=== PATIENT | male | born 1950 | race Caucasian/White ===

== ENCOUNTER 2016-12-14 13:15 | Emergency (ER) | payer BC, OTHER ==
[~2016-12-14] VITALS: Ht 167.6 cm; Wt 92.3 kg
[~2016-12-14 13:15] MED LIST: BUPR100T4 PO; CYCL1TAB29 PO; ENAL10TA PO; GABA600T PO; HYDR-3516 PO; LEVO50TA4 PO; SEIZURE MED; SOMA250T PO; TRAZ50TA12 PO; [UNRECOGNIZED DRUG - OTHER] PO
[2016-12-14 13:19] VITALS: BP 173/80; PULSE 74; RESP 20; TEMP 97.2; O2SAT 96
[2016-12-14 14:05] LABS: AUTOMATED NEUTROPHIL # 3.6 TH/MM3 (1.8-7.7); BASOPHIL % 0.7 % (0.0-2.0); EOSINOPHIL # 0.3 TH/MM3 (0-0.4); EOSINOPHIL % 5.9 % (0.0-4.0); HEMATOCRIT 39.1 % (39.0-51.0); HEMO FLAGS DIFF FINAL; LYMPH % 22.7 % (9.0-44.0); LYMPHOCYTE # 1.3 TH/MM3 (1.0-4.8); MEAN CELL VOLUME 84.1 FL (80.0-100.0); MEAN CORPUSCULAR HEMOGLOBIN 28.5 PG (27.0-34.0); MEAN CORPUSCULAR HGB CONC 33.9 % (32.0-36.0); MONO % 8.2 % (0.0-8.0); NEUT % 62.5 % (16.0-70.0); PLATELET COUNT 196 TH/MM3 (150-450); RED BLOOD COUNT 4.65 MIL/MM3 (4.50-5.90); WHITE BLOOD COUNT 5.7 TH/MM3 (4.0-11.0)
[2016-12-14 14:21] LABS: BLOOD, URINE NEG (NEG); GLUCOSE,URINE 300 mg/dL (NEG); HYALINE CAST, URINE 1 /lpf (RARE); KETONE, URINE NEG (NEG); NITRITE,URINE NEG (NEG); PH, URINE 5.5 (5.0-8.5); SQUAMOUS EPITHELIAL CELL URINE <1 /hpf (0-5); URINE COLOR LIGHT-YELLOW (YELLW/STRAW)
[2016-12-14 14:25] LABS: ALKALINE PHOSPHATASE 95 U/L (45-117); ALT (GPT) 19 U/L (12-78); ANION GAP 9 MEQ/L (5-15); AST (GOT) 14 U/L (15-37); BICARBONATE 27.3 MEQ/L (21.0-32.0); BLOOD UREA NITROGEN 25 MG/DL (7-18); CHLORIDE 99 MEQ/L (98-107); GLOMERULAR FILTRATION RATE 46 ML/MIN (>89); POTASSIUM 4.9 MEQ/L (3.5-5.1); SODIUM (NA) 135 MEQ/L (136-145); TOTAL BILIRUBIN ADULT 0.4 MG/DL (0.2-1.0)
[2016-12-14 14:26] LABS: COMMENT (UR) CULT NOT INDICATED; CULTURE IF INDICATED CULT NOT INDICATED
[2016-12-14 15:00] VITALS: BP 135/71; PULSE 98; RESP 17; TEMP 97.8; O2SAT 97
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
--- NOTE | 2016-12-14 15:26 | RADRPT ---
EXAM DATE/TIME: 12/14/2016 14:59 [facility] COMPARISON: No previous studies available for comparison. INDICATIONS : Altered mental status, fall. RADIATION DOSE: 46.82 CTDIvol (mGy) MEDICAL HISTORY : Hypertension. Cardiovascular disease SURGICAL HISTORY : None. ENCOUNTER: Initial ACUITY: 1 day PAIN SCALE: 4/10 LOCATION: Bilateral cranial TECHNIQUE: Multiple contiguous axial images were obtained of the head. Using automated exposure control and adj ustment of the mA and/or kV according to patient size, radiation dose was kept as low as reasonably a chievable to obtain optimal diagnostic quality images. FINDINGS: CEREBRUM: Atrophy. Encephalomalacia involving the right frontal lobe and right temporal lobe and The ventricles are normal for age. No evidence of midline shift, mass lesion, hemorrhage or acute infarction. No extra-axial fluid collections are seen. POSTERIOR FOSSA: The cerebellum and brainstem are intact. The 4th ventricle is midline. The cerebellopontine angle i s unremarkable. EXTRACRANIAL: The visualized portion of the orbits is intact. SKULL: The calvaria is intact. No evidence of skull fracture. CONCLUSION: 1. No acute intracranial abnormality. 2. Encephalomalacia of the right frontal lobe and temporal lobe suggesting prior trauma. 3. Atrophy. Brayan Velazquez Jr., MD on December 14, 2016 at 15:23 Board Certified Radiologist. This report was verified electronically.
[2016-12-14 16:08] VITALS: BP 130/71; TEMP 97.8
[2017-02-15] MEDS ORDERED: DEPA500T PO (09:54)
[2017-02-15] MEDS ORDERED: GABA600T PO (09:54)
[2017-02-15] MEDS ORDERED: AMAN100C18 PO (09:54)
[2017-02-15] MEDS ORDERED: LANTUS2P SQ (18:56)
[2017-02-15] MEDS ORDERED: JANU50TA8 PO (18:56)
[2017-02-24] MEDS ORDERED: GABA100C4 PO (12:47)
[2017-03-01] MEDS ORDERED: DEPA500T PO (13:03)
[2017-03-15] MEDS ORDERED: AMAN100C18 PO (13:48)
[2017-03-15] MEDS ORDERED: BUPR75TA PO (13:50)
== END 2016-12-14 16:08 | disposition home or self-care (01) ==
LOC: NEPA 13:15
DX: R41.0 Disorientation, unspecified (principal); E11.9 Type 2 diabetes mellitus without complications; I10 Essential (primary) hypertension; W19.XXXD Unspecified fall, subsequent encounter; Y99.0 Civilian activity done for income or pay
CPT/HCPCS: 70450; 80053; 81001; 85025

== ENCOUNTER 2017-06-04 11:18 | Emergency (ER) | payer BC, OTHER ==
[~2017-06-04] VITALS: Ht 172.7 cm; Wt 95.9 kg
[~2017-06-04 11:18] MED LIST changes: -BUPR100T4 PO; +BUPR75TA PO; -CYCL1TAB29 PO; +DEPA500T PO; +GABA100C4 PO; -GABA600T PO; -HYDR-3516 PO; +JANU50TA8 PO; +LANTUS2P SQ; -SEIZURE MED; -SOMA250T PO; -[UNRECOGNIZED DRUG - OTHER] PO
[2017-06-04 11:21] VITALS: BP 109/61; PULSE 69; RESP 17; TEMP 97.9; O2SAT 97
[2017-06-04] MEDS ORDERED: CETI10CH CHEW (11:59)
[2017-06-04] MEDS ORDERED: VICT18IN SQ (11:59)
--- NOTE | 2017-06-04 12:58 | RADRPT ---
EXAM DATE/TIME: 06/04/2017 12:23 [facility] COMPARISON: No previous studies available for comparison. INDICATIONS : Pain from fall. MEDICAL HISTORY : None. SURGICAL HISTORY : None. ENCOUNTER: Initial ACUITY: 1 day PAIN SCORE: 5/10 LOCATION: Left elbow. FINDINGS: No definite fractures, or dislocations are identified. No definite lytic or sclerotic lesion is seen . The joint spaces are well maintained. CONCLUSION: Unremarkable study. Bella Oro MD on June 04, 2017 at 12:51 Board Certified Radiologist. This report was verified electronically.
--- NOTE | 2017-06-04 12:59 | RADRPT ---
EXAM DATE/TIME: 06/04/2017 12:36 [facility] COMPARISON: No previous studies available for comparison. INDICATIONS : Pain from fall. MEDICAL HISTORY : None. SURGICAL HISTORY : None. ENCOUNTER: Initial ACUITY: 4 - 6 days PAIN SCORE: 5/10 LOCATION: Left knee. FINDINGS: No definite fractures, or dislocations are identified. No definite lytic or sclerotic lesion is seen . The joint spaces are well maintained. CONCLUSION: Unremarkable study. Bella Oro MD on June 04, 2017 at 12:57 Board Certified Radiologist. This report was verified electronically.
--- NOTE | 2017-06-04 12:59 | RADRPT ---
EXAM DATE/TIME: 06/04/2017 12:38 [facility] COMPARISON: CT BRAIN W/O CONTRAST, December 14, 2016, 14:59. INDICATIONS : Fall Saturday night. Confusion, balance loss. RADIATION DOSE: 36.06 CTDIvol (mGy) MEDICAL HISTORY : Cardiovascular disease. Hypertension. Diabetes mellitus type 2. SURGICAL HISTORY : None. ENCOUNTER: Initial ACUITY: 1 day PAIN SCALE: 0/10 LOCATION: cranial TECHNIQUE: Multiple contiguous axial images were obtained of the head. Using automated exposure control and adj ustment of the mA and/or kV according to patient size, radiation dose was kept as low as reasonably a chievable to obtain optimal diagnostic quality images. DICOM format image data is available electro nically for review and comparison. FINDINGS: CEREBRUM: Stable encephalomalacia of the right frontal lobe convexities in right anterior temporal region. Mild diffuse cerebral volume loss. The ventricles are normal for degree of atrophy. No evidence of midli ne shift, mass lesion, hemorrhage or acute infarction. No extra-axial fluid collections are seen. POSTERIOR FOSSA: The cerebellum and brainstem are intact. The 4th ventricle is midline. The cerebellopontine angle i s unremarkable. EXTRACRANIAL: The visualized portion of the orbits is intact. SKULL: The calvaria is intact. No evidence of skull fracture. CONCLUSION: 1. No acute intracranial abnormality. 2. Stable encephalomalacia in the right frontal and temporal lobes. Lamonte Shoemaker MD on June 04, 2017 at 12:53 Board Certified Radiologist. This report was verified electronically.
--- NOTE | 2017-06-04 13:04 | RADRPT ---
EXAM DATE/TIME: 06/04/2017 12:38 [facility] COMPARISON: No previous studies available for comparison. INDICATIONS : Trauma, fall. Neck pain. RADIATION DOSE: 21.60 CTDIvol (mGy) MEDICAL HISTORY : Cardiovascular disease. Hypertension. Diabetes mellitus type 2. SURGICAL HISTORY : None. ENCOUNTER: Initial ACUITY: 1 day PAIN SCALE: 0/10 LOCATION: neck TECHNIQUE: Volumetric scanning of the cervical spine was performed. Multiplanar reconstructions in the sagittal, coronal and oblique axial planes were performed. Using automated exposure control and adjustment o f the mA and/or kV according to patient size, radiation dose was kept as low as reasonably achievable to obtain optimal diagnostic quality images. DICOM format image data is available electronically f or review and comparison. FINDINGS: Vertebral body heights are maintained. Dens is intact. No acute bony fractures. There is loss of norm al cervical lordosis with subtle retrolisthesis of C5 on C6. Facets are normally aligned. There is mu ltilevel degenerative spondylosis of the cervical spine most prominently at C3-4 and C5-6 with disc s pace narrowing and osteophyte formation. Bony central canal is grossly patent. Moderate right neural foraminal stenosis secondary to osteophyte formation and facet arthropathy at C5-6. The no evidence for prevertebral soft tissue swelling. Bilateral calcified carotid plaques are noted. Appears unremarkable by CT. Visualized lung apices are clear. CONCLUSION: 1. Multilevel degenerative spondylosis of the cervical spine most prominently at C5-6 with subtle ret rolisthesis of C5 on C6, likely degenerative. Flexion and extension views may be performed if there i s clinical concern regarding ligamentous instability. 2. Otherwise, no acute fracture or subluxation. Lamonte Shoemaker MD on June 04, 2017 at 12:58 Board Certified Radiologist. This report was verified electronically.
--- NOTE | 2017-06-04 13:18 | PD ---
HPI Chief Complaint: Altered Mental Status Time Seen by Provider: 11:45 Travel History International Travel<30 days: No Contact w/Intl Traveler<30days: No Traveled to known affect area: No History of Present Illness HPI Patient is a 66 year old male who comes in because his and physical therapist are concerned he seems more confused. He says that Wednesday he tripped and fell and hit his left arm and leg. He says he does not think he hit his head but he is not completely sure. He denies any loss of consciousness. His history of traumatic brain injury, and his has noticed that he seems to be more forgetful and confused since the incident. He was told to come here to be checked out. He has some pain to his left knee and elbow, he denies any headache. He denies any nausea or vomiting. PFSH Past Medical History Anxiety: Yes Cardiac Catheterization: Yes Cardiovascular Problems: Yes (STENT 2012) High Cholesterol: Yes Coronary Artery Disease: Yes Diabetes: Yes Patient Takes Glucophage: No Diminished Hearing: No Hypertension: Yes Neurologic: Yes (traumatic brain injury ) Tetanus Vaccination: < 5 Years Influenza Vaccination: Yes Past Surgical History Coronary Stent: Yes Other Surgery: Yes (PLASTIC SURGERY AT AGE 10) Social History Alcohol Use: No Tobacco Use: Yes (occ cigar) Substance Use: No Allergies-Medications (Allergen,Severity, Reaction): Coded Allergies: No Known Allergies (Verified , 06/04/17) Reported Meds & Prescriptions Reported Meds & Active Scripts Active Depakote DR (Divalproex Sodium) 500 Mg Tabdr 500 Mg PO TID Gabapentin 100 Mg Cap 200 Mg PO TID Reported Cetirizine (Cetirizine HCl) 10 Mg Chew 10 Mg CHEW DAILY Victoza Inj (Liraglutide Inj) 18 Mg/3 Ml Pen 0.6 Mg SQ DAILY Trazodone (Trazodone HCl) 50 Mg Tab 75 Mg PO HS Janumet (Sitagliptin-Metformin) 50-1,000 Mg Tab 1 Tab PO BID Lantus Inj (Insulin Glargine) 1,000 Unit/10 Ml Vial 60 Units SQ DAILY Levothyroxine (Levothyroxine Sodium) 50 Mcg Tab 50 Mcg PO DAILY Enalapril (Enalapril Maleate) 10 Mg Tab 10 Mg PO DAILY Review of Systems Except as stated in HPI: all other systems reviewed are Neg General / Constitutional: No: Fever, Chills Eyes: No: Blurred Vision HENT: No: Headaches Cardiovascular: No: Chest Pain or Discomfort Respiratory: No: Shortness of Breath Gastrointestinal: No: Nausea, Vomiting Musculoskeletal: Positive: Pain Skin: Positive Other (abrasions) Neurologic: No: Weakness, Dizziness Physical Exam Narrative GENERAL: Awake and alert, in no acute distress. SKIN: Focused skin assessment warm/dry. Abrasion to the left elbow and left knee. HEAD: Atraumatic. Normocephalic. EYES: Pupils equal and round. No scleral icterus. ENT: Mucous membranes pink and moist. NECK: Trachea midline. No JVD. No cervical spine tenderness. CARDIOVASCULAR: Regular rate and rhythm. No murmur appreciated. RESPIRATORY: No accessory muscle use. Clear to auscultation. Breath sounds equal bilaterally. MUSCULOSKELETAL: No obvious deformities. No clubbing. No cyanosis. No edema. Tender to palpation of the left patella and left elbow. Full range of motion of the left knee and left elbow. NEUROLOGICAL: Awake and alert. No obvious cranial nerve deficits. Motor grossly within normal limits. Normal speech. PSYCHIATRIC: Appropriate mood and affect; insight and judgment normal. Data Data Last Documented VS Vital Signs Date Time Temp Pulse Resp B/P Pulse Ox O2 Delivery O2 Flow Rate FiO2 06/04/17 11:21 97.9 69 17 109/[address] Brain W/O Iv Contrast(Rout) (06/04/17 ) Ct Cerv Spine W/O Contrast (06/04/17 ) Elbow, Complete (4 Vws) (06/04/17 ) Knee, Complete (4vws) (06/04/17 ) [facility] Medical Decision Making Medical Screen Exam Complete: Yes Emergency Medical Condition: Yes Medical Record Reviewed: Yes Differential Diagnosis Concussion versus ICH versus head injury versus knee fracture versus elbow fracture versus muscles strain Narrative Course Patient is a 66-year-old male who comes in after a fall 2 days ago. Exam shows no neurologic abnormalities. CT head and C-spine performed show no acute abnormalities. X-ray of the knee and elbow show no acute abnormalities. Patient is anxious to leave. He is discharged with his . is comfortable taking him home at this time. He is advised follow-up with his doctors. Advised to return to the emergency department for any worsening symptoms. Diagnosis Primary Impression: Fall Qualified Code: W19.XXXA - Fall, initial encounter Patient Instructions: Fall Prevention (ED), General Instructions Additional Instructions: Follow-up with her doctors. Return to the emergency department as needed for any worsening symptoms. Disposition: 01 DISCHARGE HOME Condition: Stable Vanessa Lam MD Jun 04, 2017 13:18
== END 2017-06-04 13:46 | disposition home or self-care (01) ==
LOC: NEPD 11:18
DX: R41.82 Altered mental status, unspecified (principal); M25.562 Pain in left knee; M25.522 Pain in left elbow; W01.0XXA Fall on same level from slipping, tripping and stumbling without subsequent striking against object, initial encounter; Z87.820 Personal history of traumatic brain injury
CPT/HCPCS: 70450; 72125; 73080; 73564; 99285

== ENCOUNTER 2017-07-12 12:12 | Emergency (ER) | payer OTHER, BC ==
[~2017-07-12] VITALS: Ht 172.7 cm; Wt 92.0 kg
[~2017-07-12 12:12] MED LIST changes: -BUPR75TA PO; +CETI10CH CHEW; +VICT18IN SQ
[2017-07-12 12:18] VITALS: BP 109/64; PULSE 75; RESP 20; TEMP 97.7; O2SAT 97
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
--- NOTE | 2017-07-12 13:38 | RADRPT ---
EXAM DATE/TIME: 07/12/2017 13:08 [facility] COMPARISON: No previous studies available for comparison. INDICATIONS : Left sided weakness for three weeks. Difficulty walking. RADIATION DOSE: 56.35 CTDIvol (mGy) MEDICAL HISTORY : Cardiovascular disease. Hypertension. Diabetes mellitus type 2.Traumatic brain injury last year. SURGICAL HISTORY : None. ENCOUNTER: Initial ACUITY: 3 weeks PAIN SCALE: 0/10 LOCATION: cranial TECHNIQUE: Multiple contiguous axial images were obtained of the head. Using automated exposure control and adj ustment of the mA and/or kV according to patient size, radiation dose was kept as low as reasonably a chievable to obtain optimal diagnostic quality images. DICOM format image data is available electro nically for review and comparison. FINDINGS: CEREBRUM: Encephalomalacia in bifrontal and right temporal lobes. Minimal changes are seen within the left too etal lobe. The ventricles are normal for age. No evidence of midline shift, mass lesion, hemorrhage or acute infarction. No extra-axial fluid collections are seen. POSTERIOR FOSSA: The cerebellum and brainstem are intact. The 4th ventricle is midline. The cerebellopontine angle i s unremarkable. EXTRACRANIAL: The visualized portion of the orbits is intact. SKULL: The calvaria is intact. No evidence of skull fracture. CONCLUSION: 1. Encephalomalacia again seen bilaterally, unchanged. 2. No hemorrhage. Deng Jane MD on July 12, 2017 at 13:32 Board Certified Radiologist. This report was verified electronically.
[2017-07-12] MEDS ORDERED: GABA100C4 PO (14:29)
[2017-07-12] MEDS ORDERED: BUPR75TA PO (14:29)
[2017-07-12] MEDS ORDERED: GABA300C5 PO (14:29)
[2017-07-12] MEDS ORDERED: DEPA500T PO (14:29)
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
[2017-08-05] MEDS ORDERED: AMAN100T PO (10:42)
[2017-08-23] MEDS ORDERED: GABA300C5 PO (11:57)
[2017-08-23] MEDS ORDERED: GABA100C4 PO (11:57)
[2017-09-07] MEDS ORDERED: TRAZ50TA12 PO (10:45)
== END 2017-07-12 17:33 | disposition home or self-care (01) ==
LOC: NEPD 12:12
DX: R53.1 Weakness (principal); E11.9 Type 2 diabetes mellitus without complications; Z79.4 Long term (current) use of insulin; V49.9XXA Car occupant (driver) (passenger) injured in unspecified traffic accident, initial encounter; Z87.820 Personal history of traumatic brain injury
CPT/HCPCS: 70450; 99284

== ENCOUNTER 2017-10-18 10:17 | Emergency (ER) | payer OTHER, BC ==
[~2017-10-18] VITALS: Ht 185.4 cm; Wt 92.0 kg
[~2017-10-18 10:17] MED LIST changes: +AMAN100T PO; +BUPR75TA PO; -ENAL10TA PO; +GABA300C5 PO
[2017-10-18 10:21] VITALS: BP 130/76; PULSE 81; RESP 12; TEMP 98.1; O2SAT 99
--- NOTE | 2017-10-18 10:56 | PD ---
HPI Chief Complaint: Headache Time Seen by Provider: 10:51 Travel History International Travel<30 days: No Contact w/Intl Traveler<30days: No Traveled to known affect area: No History of Present Illness HPI 66-year-old male patient with history of traumatic brain injury, frequent falls , presents to the ER today brought in by his health hospice spiritual care coordinator, apparently had chipped and fallen while taking out would from the garage yesterday afternoon, never got checked out, is not sure whether he lost consciousness, and is complaining about a 6 out of 10 headache. He also reports neck discomfort as well. He denies any other injuries or issues. Modifying Factors: None Associated Signs & Symptoms: Fall, possible head injury, possible loss consciousness Risk Factors: TBI, frequent falls PFSH Past Medical History Hx Anticoagulant Therapy: Yes Anxiety: Yes Cardiac Catheterization: Yes Cardiovascular Problems: Yes (STENT 2012) High Cholesterol: Yes Coronary Artery Disease: Yes Diabetes: Yes Diminished Hearing: No Hypertension: Yes Neurologic: Yes (traumatic brain injury ) Past Surgical History Coronary Stent: Yes Other Surgery: Yes (PLASTIC SURGERY AT AGE 10) Social History Alcohol Use: No Tobacco Use: Yes (occ cigar) Substance Use: No Allergies-Medications (Allergen,Severity, Reaction): Coded Allergies: No Known Allergies (Verified Allergy, Unknown, 10/18/17) Reported Meds & Prescriptions Reported Meds & Active Scripts Active Trazodone (Trazodone HCl) 50 Mg Tab 75 Mg PO HS PRN Amantadine (Amantadine HCl) 100 Mg Tab 50 Mg PO EVERY OTHER DAY Depakote DR (Divalproex Sodium) 500 Mg Tabdr 500 Mg PO TID Gabapentin 300 Mg Cap 300 Mg PO HS Gabapentin 100 Mg Cap 100 Mg PO DAILY Reported Bupropion HCl 75 Mg Tab 75 Mg PO BID Cetirizine (Cetirizine HCl) 10 Mg Chew 10 Mg CHEW DAILY Victoza Inj (Liraglutide Inj) 18 Mg/3 Ml Pen 0.6 Mg SQ DAILY Janumet (Sitagliptin-Metformin) 50-1,000 Mg Tab 1 Tab PO BID Lantus Inj (Insulin Glargine) 1,000 Unit/10 Ml Vial 60 Units SQ DAILY Levothyroxine (Levothyroxine Sodium) 50 Mcg Tab 50 Mcg PO DAILY Review of Systems Except as stated in HPI: all other systems reviewed are Neg Physical Exam Narrative GENERAL: Well-developed elderly white male patient currently in mild distress. Awake and oriented 3. SKIN: Focused skin assessment warm/dry. HEAD: Atraumatic. Normocephalic. EYES: Pupils equal and round. No scleral icterus. No injection or drainage. ENT: No nasal bleeding or discharge. Mucous membranes pink and moist. NECK: Trachea midline. No JVD. CARDIOVASCULAR: Regular rate and rhythm. No murmur appreciated. RESPIRATORY: No accessory muscle use. Clear to auscultation. Breath sounds equal bilaterally. GASTROINTESTINAL: Abdomen soft, non-tender, nondistended. Hepatic and splenic margins not palpable. MUSCULOSKELETAL: No obvious deformities. No clubbing. No cyanosis. No edema. NEUROLOGICAL: Awake and alert. No obvious cranial nerve deficits. Motor grossly within normal limits. Normal speech. PSYCHIATRIC: Appropriate mood and affect; insight and judgment normal. Data Data Last Documented VS Vital Signs Date Time Temp Pulse Resp B/P (MAP) Pulse Ox O2 Delivery O2 Flow Rate FiO2 10/18/17 10:21 98.1 81 12 130/76 (94) [address] Brain W/O Iv Contrast(Rout) (10/18/17 10:45) Ct Cerv Spine W/O Contrast (10/18/17 10:51) Complete Blood Count With Diff (10/18/17 10:51) Basic Metabolic Panel (Bmp) (10/18/17 10:51) Prothrombin Time / Inr (Pt) (10/18/17 10:51) Act Partial Throm Time (Ptt) (10/18/17 10:51) Labs Laboratory Tests Test 10/18/17 11:00 10/18/17 11:10 Prothrombin Time 11.8 SEC Prothromb Time International Ratio 1.1 RATIO Activated Partial Thromboplast Time 26.9 SEC White Blood Count 8.3 TH/MM3 Red Blood Count 4.93 MIL/MM3 Hemoglobin 14.9 GM/DL Hematocrit 43.5 % Mean Corpuscular Volume 88.2 FL Mean Corpuscular Hemoglobin 30.1 PG Mean Corpuscular Hemoglobin Concent 34.2 % Red Cell Distribution Width 15.7 % Platelet Count 188 TH/MM3 Mean Platelet Volume 8.6 FL Neutrophils (%) (Auto) 64.6 % Lymphocytes (%) (Auto) 25.1 % Monocytes (%) (Auto) 8.1 % Eosinophils (%) (Auto) 2.0 % Basophils (%) (Auto) 0.2 % Neutrophils # (Auto) 5.4 TH/MM3 Lymphocytes # (Auto) 2.1 TH/MM3 Monocytes # (Auto) 0.7 TH/MM3 Eosinophils # (Auto) 0.2 TH/MM3 Basophils # (Auto) 0.0 TH/MM3 CBC Comment DIFF FINAL Differential Comment Blood Urea Nitrogen 32 MG/DL Creatinine 2.07 MG/DL Random Glucose 261 MG/DL Calcium Level 8.8 MG/DL Sodium Level 134 MEQ/L Potassium Level 4.8 MEQ/L Chloride Level 101 MEQ/L Carbon Dioxide Level 22.4 MEQ/L Anion Gap 11 MEQ/L Estimat Glomerular Filtration Rate 32 ML/MIN MDM Medical Decision Making Medical Screen Exam Complete: Yes Emergency Medical Condition: Yes Medical Record Reviewed: Yes Interpretation(s) Laboratory Tests Test 10/18/17 11:00 10/18/17 11:10 Prothrombin Time 11.8 SEC (9.8-11.6) Monocytes (%) (Auto) 8.1 % (0.0-8.0) Blood Urea Nitrogen 32 MG/DL (7-18) Creatinine 2.07 MG/DL (0.60-1.30) Random Glucose 261 MG/DL (74-106) Sodium Level 134 MEQ/L (136-145) Estimat Glomerular Filtration Rate 32 ML/MIN (>89) Differential Diagnosis Fall, possible head injury, possible loss of consciousness: Concussion versus intracranial injuries Narrative Course CT of the brain and C-spine did not show any signs of acute injuries. Lab work was significant for elevated BUN/creatinine creatinine which appears to be baseline for this patient. At this point, I do not see any signs of acute injuries and my plan would be to release the patient with follow-up to primary care physician. Return for any worsening in symptoms as needed. The plan has been discussed with the patient and he states understanding. Diagnosis Primary Impression: Fall Additional Impression: Impairment of balance Disposition: 01 DISCHARGE HOME Condition: Stable SoonGirish goncalves MD Oct 18, 2017 10:56
[2017-10-18 11:26] LABS: AUTOMATED NEUTROPHIL # 5.4 TH/MM3 (1.8-7.7); BASOPHIL % 0.2 % (0.0-2.0); EOSINOPHIL # 0.2 TH/MM3 (0-0.4); HEMATOCRIT 43.5 % (39.0-51.0); HEMO FLAGS DIFF FINAL; LYMPH % 25.1 % (9.0-44.0); LYMPHOCYTE # 2.1 TH/MM3 (1.0-4.8); MEAN CELL VOLUME 88.2 FL (80.0-100.0); MEAN CORPUSCULAR HEMOGLOBIN 30.1 PG (27.0-34.0); MEAN CORPUSCULAR HGB CONC 34.2 % (32.0-36.0); MONO % 8.1 % (0.0-8.0); NEUT % 64.6 % (16.0-70.0); PLATELET COUNT 188 TH/MM3 (150-450); RED BLOOD COUNT 4.93 MIL/MM3 (4.50-5.90); RED CELL DISTRIBUTION WIDTH 15.7 % (11.6-17.2); WHITE BLOOD COUNT 8.3 TH/MM3 (4.0-11.0)
[2017-10-18 11:36] LABS: APTT (PATIENT) 26.9 SEC (24.3-30.1); INTERNATIONAL NORMALIZED RATIO 1.1 RATIO; PROTHROMBIN TIME - PATIENT 11.8 SEC (9.8-11.6)
--- NOTE | 2017-10-18 11:39 | RADRPT ---
EXAM DATE/TIME: 10/18/2017 11:08 [facility] COMPARISON: CT BRAIN W/O CONTRAST, July 12, 2017, 13:08. INDICATIONS : Frequent falls,fell yesterday,headache. RADIATION DOSE: 56.35 CTDIvol (mGy) MEDICAL HISTORY : Cardiovascular disease. Hypertension. Diabetes SURGICAL HISTORY : None. ENCOUNTER: Initial ACUITY: 2 days PAIN SCALE: 7/10 LOCATION: cranial TECHNIQUE: Multiple contiguous axial images were obtained of the head. Using automated exposure control and adj ustment of the mA and/or kV according to patient size, radiation dose was kept as low as reasonably a chievable to obtain optimal diagnostic quality images. DICOM format image data is available electro nically for review and comparison. FINDINGS: CEREBRUM: Atrophy. Encephalomalacia noted involving both frontal lobes and right temporal lobe. The ventricles are normal for age. No evidence of midline shift, mass lesion, hemorrhage or acute infarction. No e xtra-axial fluid collections are seen. POSTERIOR FOSSA: The cerebellum and brainstem are intact. The 4th ventricle is midline. The cerebellopontine angle i s unremarkable. EXTRACRANIAL: The visualized portion of the orbits is intact. SKULL: The calvaria is intact. No evidence of skull fracture. CONCLUSION: 1. No acute intracranial abnormality. 2. Areas of encephalomalacia in a pattern suggesting prior trauma. Brayan Velazquez Jr., MD on October 18, 2017 at 11:35 Board Certified Radiologist. This report was verified electronically.
[2017-10-18 11:57] LABS: BICARBONATE 22.4 MEQ/L (21.0-32.0); POTASSIUM 4.8 MEQ/L (3.5-5.1)
--- NOTE | 2017-10-18 11:58 | RADRPT ---
EXAM DATE/TIME: 10/18/2017 11:14 [facility] COMPARISON: No previous studies available for comparison. INDICATIONS : Frequent falls,fell yesterday RADIATION DOSE: 44.54 CTDIvol (mGy) MEDICAL HISTORY : Cardiovascular disease. Hypertension. Diabetes SURGICAL HISTORY : None. ENCOUNTER: Initial ACUITY: 1 day PAIN SCALE: 7/10 LOCATION: neck TECHNIQUE: Volumetric scanning of the cervical spine was performed. Multiplanar reconstructions in the sagittal, coronal and oblique axial planes were performed. Using automated exposure control and adjustment o f the mA and/or kV according to patient size, radiation dose was kept as low as reasonably achievable to obtain optimal diagnostic quality images. DICOM format image data is available electronically f or review and comparison. FINDINGS: There is slight retrolisthesis of C5 relative to C6. Slight reversal of mid to upper cervical lordosi s. There is slight rotatory right convex scoliosis. There is no definite evidence of fracture. There is a mild degree of bony canal stenosis related to endplate ossific spurring and the spondylolisthesi s at C5-6. Canal and foramina are elsewhere satisfactory. There is no evidence of paraspinal hematoma . CONCLUSION: Degenerative change with mild spondylolisthesis and mild canal stenosis at C5-6. Less severe degenera tive changes at other levels. No acute bony injury Cheng Smith MD on October 18, 2017 at 11:51 Board Certified Radiologist. This report was verified electronically.
== END 2017-10-18 12:58 | disposition home or self-care (01) ==
LOC: NEPC 10:17
DX: R51 Headache (principal); M54.2 Cervicalgia; F41.9 Anxiety disorder, unspecified; E78.00 Pure hypercholesterolemia, unspecified; I25.10 Atherosclerotic heart disease of native coronary artery without angina pectoris; E11.9 Type 2 diabetes mellitus without complications; I10 Essential (primary) hypertension; F17.290 Nicotine dependence, other tobacco product, uncomplicated; Z91.81 History of falling
CPT/HCPCS: 70450; 72125; 80048; 85025; 85610; 85730; 99285

== ENCOUNTER 2018-02-10 06:11 | Emergency (ER) | payer OTHER, BC ==
[~2018-02-10] VITALS: Ht 172.7 cm; Wt 94.0 kg
[~2018-02-10 06:11] MED LIST changes: -AMAN100T PO; +LISI-519 PO
[2018-02-10 06:20] VITALS: BP 166/77; PULSE 61; RESP 16; TEMP 97.9; O2SAT 97
[2018-02-10] MEDS ORDERED: PROCHLORPERAZINE INJ 10 MG/2 ML VIAL IV PUSH ONE (06:30)
[2018-02-10] MEDS ORDERED: diphenhydrAMINE HCL 50 MG/ML VIAL IV PUSH ONE (06:30)
--- NOTE | 2018-02-10 06:42 | PD ---
HPI . Headache Chief Complaint: Headache Time Seen by Provider: 06:26 Travel History International Travel<30 days: No Contact w/Intl Traveler<30days: No Traveled to known affect area: No History of Present Illness HPI Patient presents with a chief complaint of headache. He states that the headache awakened her from sleep tonight. He describes a sharp pain on the vertex of his head which he rates 7.5-8/10. Pain is improved with ice. He states that he had a heavy weight fall on his head several years ago and that he has suffered intermittent headaches since that time. PFSH Past Medical History Hx Anticoagulant Therapy: Yes Anxiety: Yes Cardiac Catheterization: Yes Cardiovascular Problems: Yes (STENT 2012) High Cholesterol: Yes Coronary Artery Disease: Yes Diabetes: Yes Patient Takes Glucophage: Yes Diminished Hearing: No Hypertension: Yes Neurologic: Yes (traumatic brain injury ) Past Surgical History Coronary Stent: Yes Other Surgery: Yes (PLASTIC SURGERY AT AGE 10) Social History Alcohol Use: No Tobacco Use: Yes (occ cigar) Substance Use: No Allergies-Medications (Allergen,Severity, Reaction): Coded Allergies: No Known Allergies (Verified Allergy, Unknown, 02/10/18) Reported Meds & Prescriptions Reported Meds & Active Scripts Active Gabapentin 100 Mg Cap 200 Mg PO DAILY Gabapentin 300 Mg Cap 300 Mg PO HS Trazodone (Trazodone HCl) 50 Mg Tab 75 Mg PO HS PRN Depakote DR (Divalproex Sodium) 500 Mg Tabdr 500 Mg PO TID Reported Lisinopril 5 Mg Tab 5 Mg PO DAILY Bupropion HCl 75 Mg Tab 100 Mg PO BID Cetirizine (Cetirizine HCl) 10 Mg Chew 10 Mg CHEW DAILY Victoza Inj (Liraglutide Inj) 18 Mg/3 Ml Pen 0.6 Mg SQ DAILY Janumet (Sitagliptin-Metformin) 50-1,000 Mg Tab 1 Tab PO BID Lantus Inj (Insulin Glargine) 1,000 Unit/10 Ml Vial 60 Units SQ DAILY Levothyroxine (Levothyroxine Sodium) 50 Mcg Tab 50 Mcg PO DAILY Review of Systems Except as stated in HPI: all other systems reviewed are Neg HENT: Positive: Headaches Physical Exam Narrative GENERAL: The patient had to be awakened from sleep for evaluation. SKIN: Warm and dry. HEAD: Normocephalic/atraumatic. Tender on the vertex of the scalp. EYES: Pupils are equal. Extraocular movements are intact. NECK: Normal range of motion. Supple. RESPIRATORY: Nonlabored respirations. MUSCULOSKELETAL: Atraumatic. NEUROLOGICAL: A and O 3. Cranial nerves II through XII are grossly intact. [place]er are equal. [id number] exam is intact. PSYCHIATRIC: Appropriate mood and affect. Data Data Last Documented VS Vital Signs Date Time Temp Pulse Resp B/P (MAP) Pulse Ox O2 Delivery O2 Flow Rate FiO2 02/10/18 06:20 97.9 61 16 166/77 (106) 97 Orders Orders ^ Saline Lock (02/10/18 06:26) Diphenhydramine Inj (Benadryl Inj) (02/10/18 06:30) Prochlorperazine Inj (Compazine Inj) (02/10/18 06:30) MDM Medical Decision Making Medical Screen Exam Complete: Yes Emergency Medical Condition: Yes Differential Diagnosis Differential diagnosis of headache includes but is not limited to migraine, muscle contraction headache, brain tumor, brain bleed Narrative Course This patient presents complaining with a sharp headache on the vertex of his scalp which he rates 7.5-8/10. However, he had to be awakened from sleep for evaluation. His pain is clearly not severe. Pain is improved with an ice pack. I will give him a dose of Compazine and Benadryl and discharge him to home. Diagnosis Primary Impression: Headache Qualified Codes: G44.319 - Acute post-traumatic headache, not intractable Patient Instructions: Acute Headache (DC), General Instructions Disposition: 01 DISCHARGE HOME Condition: Stable Glendy Delgado MD Feb 10, 2018 06:42
== END 2018-02-10 07:07 | disposition home or self-care (01) ==
LOC: NEPC 06:11
DX: G44.319 Acute post-traumatic headache, not intractable (principal)
CPT/HCPCS: 96374; 96375; 99284; J0780; J1200